=== PATIENT | male | born 1960 | race Caucasian/White ===

== ENCOUNTER 2025-01-13 08:49 | Outpatient (AMB) | payer OTHER, SELFPAY ==
--- NOTE | 2025-01-13 08:52 | A.OFFVIS_ITS ---
Vital Signs 01/13/25 08:55 Height 6 ft 1 in Weight 181 lb BMI 23.9 BP 140/82 H Blood Pressure Location Rt brachial Position Sitting Pulse 68 Pulse Source Pulse Oximeter Pulse Oximetry (%) 98 Oxygen Delivery Method Room Air Intake Visit Reasons: E-DINING SERVICES MANAGER: Sleep Apnea Intake Note: Patient presents for sleep apnea Allergies animal dander Allergy (Unknown, Verified 01/13/25 08:56) Unknown house dust Allergy (Unknown, Verified 01/13/25 08:56) Unknown lactose Allergy (Unknown, Verified 01/13/25 08:56) Unknown No Known Drug Allergies Allergy (Unknown, Unverified 01/13/25 08:56) U HPI Comments Details: 64 year old male with REM behavior disorder referred to us for a sleep evaluation by pcp. He goes to bed at 9pm and wakes up several times for the bathroom, usually sleeps through the night. He says his muscles twitch in his arms and his leg through out the night. His c/o him snoring though he has trained himself to be a nose breather and the snoring has improved. His says he kicks her in his sleep at 30 sec intervals. He had a home sleep study in 04/2022 at [facility] and his AHI was 8 and oxygen desaturation was below 88%. He has a h/o of deviated septum and was recommended he start CPAP at [id number] and f/u for compliance, but he didn't really understand the reason why he needed it. His network systems consultant recently recommended he gets evaluated by an in lab sleep study. He denies RLS, nocuturia, and morning headaches, bruxism. He is generally very healthy and eats a good diet. He gets concerned about his health over all and tends to be anxious person, however since childhood always very active skiing and now since retiring he is doing more hiking, biking, and social activities with friends. [facility] Medical History (Updated 01/19/25 @ 04:49 by Alexandrea Estevez MD) Obstructive sleep apnea Mild obstructive sleep apnea Hyperlipemia History of nephrolithiasis History of basal cell cancer GERD (gastroesophageal reflux disease) Generalized anxiety disorder Family History Father Prostate cancer Social History Household Members: Spouse and Children Housing: House Alcohol intake: current Alcohol intake frequency: a few times a week Patient Tobacco Use Status: Never used Tobacco Physical Exam Vital Signs: Last Vital Signs Pulse 68 01/13/25 08:55 BP 140/82 H 01/13/25 08:55 Pulse Ox 98 01/13/25 08:55 Oxygen Delivery Method Room Air 01/13/25 08:55 BMI result Body Mass Index 23.9 Healthy and cooperative male. Const General: cooperative, comfortable and no acute distress Orientation/consciousness: patient oriented x3 HEENT Face and sinus: Yes face symmetric Teeth and gingiva: other ([place] score of 3) Eyes Pupils: Equal, round and reactive pupils present Neck Neck: Yes full ROM Resp Effort & Inspection: normal respiratory effort and able to speak in complete sentences Neuro Other: slight upper extremity tremor r.>l. slight abnormality of 5th digit left hand General: patient oriented x3 and moves all extremities Cranial nerves: Yes Facial sensation intact/muscles of mastication intact, Yes Equal, round and reactive pupils present, Yes Normal accommodation reflex present, Yes Bilaterally intact EOM present, Yes Normal facial strength present, Yes Midline tongue present, Yes Ability to bilaterally rotate head present and Yes Ability to bilaterally elevate shoulders present Cognition (Neuro): normal cognition Gait exam (Neuro): Normal gait present Motor exam (neuro): 5/5 motor strength present throughout and Normal motor muscle tone present throughout Deep tendon reflexes (DTR's): Right triceps reflex intensity grade: 2+, Left triceps reflex intensity grade: 2+, Rt Biceps (C5, C6): 2+, Left biceps reflex intensity grade: 2+, Right brachioradialis reflex intensity grade: 2+, Left brachioradialis reflex intensity grade: 2+, Right patellar reflex intensity grade: 2+, Left patellar reflex intensity grade: 2+, Right ankle reflex intens ity grade: 2+ and Left ankle reflex intensity grade: 2+ Coordination: [id number] test normal Psych Thought process: Normal thought process present Thought content: Normal thought content present Results Reviewed Results Reviewed: HST 04/2022 [facility] AHI was 8 and oxygen desaturaton to 88% Recommendation was to start CPAP [id number] Assessment & Plan Assessment & Plan (1) Obstructive sleep apnea: Code(s): G47.33 - Obstructive sleep apnea (adult) (pediatric) Category: Medical (2) Sleep behavior disorder, REM: Code(s): G47.52 - REM sleep behavior disorder Category: Medical Plan RAMAN continue CPAP [id number] for compliance to see if symptoms improve, will f/u with in lab sleep studies. Sleep behavior disorder, REM kicking his and tossing and turning in sleep. Labs from [facility] requested, [facility] to r/o nutritional / vitamin/ mineral deficiencies. F/u in 3 months after PSG Orders: Orders RT PSG in-lab sleep study 01/13/25 G47.33 - Obstructive sleep apnea (adult) (pediatric) Patient Instructions: Sleep Hygiene provided: set a scheduled bedtime and wake time to help regulate the circadian rhythm and balance the release of pituitary hormones. Sleep in a dark room, temperatures below 68 degrees, and no devices n bed. Limit caffeinated products 6 hours prior to bed, and limit fluids 2-4 hours prior to bed. Gentle night yoga, diffusing essential oils, and playing soft music can be relaxing. Coding Level of Care Code New Pt Level 4 (87511) Diagnoses Obstructive sleep apnea G47.33 Sleep behavior disorder, REM G47.52 Time Spent (min) 35 Comment New Patient Evaluation of sleep with PSG Sleep Questionnaire Difficulty falling asleep: No Difficulty staying asleep?: Yes Number of arousals: 3-4 Snoring: Yes (mild and improved) Witnessed apneas: Yes Gasping arousals: Yes Nocturia: No GERD: Yes Vivid dreams: Yes Acting out dreams: Yes Abnormal behavior in sleep: Yes Abnormal movements in sleep: Yes Morning headaches: No Excessive daytime sleepiness: No Daytime naps: No Restless legs: No Hallucinations: No Sleep paralysis: No Drop attacks: No Sleep Study: Yes (04/2022 in [facility]) CPAP: Yes
[2025-01-13 08:55] VITALS: BP 140/82; PULSE 68; O2SAT 98; BMI 23.9
== END 2025-01-13 09:39 | disposition home or self-care (01) ==
LOC: HO.HSMS 08:50
PROVIDERS: PCP Family Medicine; Visit Provider Physician Assistant Medical
DX: G47.33 Obstructive sleep apnea (adult) (pediatric) (principal); G47.52 REM sleep behavior disorder
CPT/HCPCS: 99204

== ENCOUNTER → 2025-01-13 08:49 | Outpatient (BNVA) | payer OTHER, SELFPAY | PROVIDERS: PCP Family Medicine; Visit Provider Physician Assistant Medical ==

== ENCOUNTER → 2025-02-06 19:30 | Outpatient (REF) | payer OTHER, SELFPAY | LOC: HO.SL 19:30 | PROVIDERS: PCP Family Medicine; Visit Provider Physician Assistant Medical | DX: G47.33 Obstructive sleep apnea (adult) (pediatric) (principal) | CPT/HCPCS: 95810 ==

== ENCOUNTER → 2025-02-06 21:36 | Outpatient (BNV) | payer OTHER, SELFPAY | PROVIDERS: PCP Family Medicine; Visit Provider Psychiatry & Neurology Neurology | DX: G47.61 Periodic limb movement disorder (principal) | CPT/HCPCS: 95810 ==

== ENCOUNTER → 2025-09-07 15:01 | Outpatient (REF) | payer MEDICARE, SELFPAY | LOC: HO.SL 15:01 | PROVIDERS: PCP Family Medicine; Visit Provider Physician Assistant Medical | DX: G47.19 Other hypersomnia (principal) | CPT/HCPCS: 95806 ==

== ENCOUNTER → 2025-09-07 15:11 | Outpatient (BNV) | payer MEDICARE, SELFPAY | PROVIDERS: PCP Family Medicine; Visit Provider Psychiatry & Neurology Neurology | DX: G47.33 Obstructive sleep apnea (adult) (pediatric) (principal) | CPT/HCPCS: 95806 ==

== ENCOUNTER 2025-09-16 08:55 | Outpatient (AMB) | payer MEDICARE, SELFPAY ==
--- NOTE | 2025-09-16 09:06 | A.OFFVIS_ITS ---
Vital Signs 09/16/25 09:07 Height 6 ft 1 in Weight 186 lb 6 oz BMI 24.6 BP 124/70 Blood Pressure Location Rt brachial Position Sitting Pulse 65 Pulse Source Pulse Oximeter Pulse Oximetry (%) 97 Oxygen Delivery Method Room Air Intake Visit Reasons: f/u Intake Note: Patient presents follow up RAMAN. HST in chart(AHI-8.5, LISBETH-89%). Accompanied by: Spouse Allergies animal dander Allergy (Unknown, Verified 09/16/25 09:08) Unknown house dust Allergy (Unknown, Verified 09/16/25 09:08) Unknown lactose Allergy (Unknown, Verified 09/16/25 09:08) Unknown No Known Drug Allergies Allergy (Unknown, Verified 09/16/25 09:08) U HPI Comments Details: 65 year old male with PLMD and difficulties sleeping presents for a review of his home sleep test. 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 He eats a clean diet avoids alcohol, carbs and sugary snacks. He has had 3 sleep studies completed on Sep 07, , which show mild RAMAN AHI is 7.5/6.1/8.5/hr respectively with O2 desaturation to 89%. He has poor sleep efficiency at 35%, snoring, and minimal to absence of REM sleep. He has allergies and a history of nasal septum deviation which causes interruptions during sleep. He uses his cpap however will forget to put it on at times, gets his supplies on time. He has PLMD with an arousal index of 22/hr with twitches and paresthesias. Per his he kicks his feet, and moves for at least ten minutes when they share a bed and he can keep her up at night.He complaints of upper extremities numbness and tingling mainly l. arm falls asleep, he is a side sleeper and he purchased a special pillow as this alleviates the numbness. He does not smoke, mood and memory are stable. FH + daughter 31 epilepsy disorder, on Depakote. Mom 100, Dad 92, both healthy. [facility] Medical History Obstructive sleep apnea Mild obstructive sleep apnea Hyperlipemia History of nephrolithiasis History of basal cell cancer GERD (gastroesophageal reflux disease) Generalized anxiety disorder Family History Father Prostate cancer Social History Household Members: Spouse and Children Housing: House Alcohol intake: current Alcohol intake frequency: a few times a week Patient Tobacco Use Status: Never used Tobacco Physical Exam Vital Signs: Last Vital Signs Pulse 65 09/16/25 09:07 BP 124/70 09/16/25 09:07 Pulse Ox 97 09/16/25 09:07 Oxygen Delivery Method Room Air 09/16/25 09:07 BMI result Body Mass Index 24.6 Healthy and cooperative male. Const General: cooperative, comfortable and no acute distress Orientation/consciousness: patient oriented x3 HEENT Face and sinus: Yes face symmetric Teeth and gingiva: other ([place] score of 3) Eyes Pupils: Equal, round and reactive pupils present Neck Neck: Yes full ROM Resp Effort & Inspection: normal respiratory effort and able to speak in complete sentences Neuro Other: slight upper extremity tremor r.>l. slight abnormality of 5th digit left hand General: patient oriented x3 and moves all extremities Cranial nerves: Yes Facial sensation intact/muscles of mastication intact, Yes Equal, round and reactive pupils present, Yes Normal accommodation reflex present, Yes Bilaterally intact EOM present, Yes Normal facial strength present, Yes Midline tongue present, Yes Ability to bilaterally rotate head present and Yes Ability to bilaterally elevate shoulders present Cognition (Neuro): normal cognition Gait exam (Neuro): Normal gait present Motor exam (neuro): 5/5 motor strength present throughout and Normal motor muscle tone present throughout Deep tendon reflexes (DTR's): Right triceps reflex intensity grade: 2+, Left triceps reflex intensity grade: 2+, Rt Biceps (C5, C6): 2+, Left biceps reflex intensity grade: 2+, Right brachioradialis reflex intensity grade: 2+, Left brachioradialis reflex intensity grade: 2+, Right patellar reflex intensity grade: 2+, Left patellar reflex intensity grade: 2+, Right ankle reflex intensity grade: 2+ and Left ankle reflex intensity grade: 2+ Coordination: [id number] test normal Psych Appearance: grossly normal Mental Status: mental status grossly normal Thought process: Normal thought process present Thought content: Normal thought content present Results Reviewed Results Reviewed: requested compliance data Sleep study react reviewed x 3 days. Mild RAMAN with O2 nadirs to 85%. Sleep efficiency of 35% and insufficient REM sleep. Assessment & Plan Assessment & Plan (1) Sleep behavior disorder, REM: Code(s): G47.52 - REM sleep behavior disorder Category: Medical (2) Excessive daytime sleepiness: Code(s): G47.19 - Other hypersomnia Category: Medical Plan Mild RAMAN continue cpap [id number] and >4 hours daily. will request compliance and labs. Sleep hygiene, Melatonin 5mg po daily one hour prior to bed, increase water intake. Labs requested from Dr. Shaniqua Quinones, [facility] PLMD / RLS check CBC/ CMP/ TSH/ B12 and Folate/ Homocysteine, MMA, Vit D. Ferritin. May take 200-400 mg magnesium at bedtime and alpha lipoic acid 200 mg qpm. Sleep behavior disorder, REM, kicking his and tossing and turning in sleep. May start Dopamine agonist in the future. Labs from [facility] requested reviewed old labs with pt. PSG-in lab study to evaluate PLMD/ RLS kicking, REM behavior. Orders: Orders RT PSG in-lab sleep study Today G47.19 - Other hypersomnia, G47.52 - REM sleep behavior disorder Medications: New magnesium oxide 400 mg PO DAILY 30 tabs 3RF alpha lipoic acid 200 mg PO DAILY 30 caps 2RF RLS Patient Instructions: Mild raman Continue using cpap and for >4 hours a night, wash mask, rinse hoses, change filters and fill reservoir as needed. RLS REM behavior disorder may start magnesium 200-400 mg po qpm. May start alph lipoic acid 200-400mg po qpm, may use magnilfe topically. Coding Level of Care Code Est Pt Level 4 (56844) Diagnoses Sleep behavior disorder, REM G47.52 Excessive daytime sleepiness G47.19
[2025-09-16 09:07] VITALS: BP 124/70; PULSE 65; O2SAT 97; BMI 24.6
== END 2025-09-16 11:01 | disposition home or self-care (01) ==
LOC: HO.HSMC 08:56
PROVIDERS: PCP Family Medicine; Visit Provider Physician Assistant Medical
DX: G47.52 REM sleep behavior disorder (principal); G47.19 Other hypersomnia
CPT/HCPCS: 99214

== ENCOUNTER → 2025-09-16 08:55 | Outpatient (BNVA) | payer MEDICARE, SELFPAY | PROVIDERS: PCP Family Medicine; Visit Provider Physician Assistant Medical | DX: G47.19 Other hypersomnia (principal); G25.81 Restless legs syndrome; G47.52 REM sleep behavior disorder; Z99.89 Dependence on other enabling machines and devices; Z79.899 Other long term (current) drug therapy; Z72.821 Inadequate sleep hygiene | CPT/HCPCS: 99212 ==